=== PATIENT | female | born 1965 ===

== ENCOUNTER → 2021-08-13 | Outpatient (CLI) | payer MEDICAID ==
[~2021-08-13] MED LIST: BUPIVACAINE HCL 0.25% P/F 10 ML VIAL ONE; IOHEXOL 300 MG/ML 100ML BOTTLE IJ ONE; LIDOCAINE 2%HCL (LOCAL ANESTH.) INJ 20ML MDV ONE; methylPREDNISolone ACETATE 80 MG/ML VL ONE
== END | disposition home or self-care (01) ==
LOC: XY 13:02
PROVIDERS: ATTEND Orthopaedic Surgery Adult Reconstructive Orthopaedic Surgery
DX: M25.531 Pain in right wrist (principal)
CPT/HCPCS: 20605; 73100; 76000; J1040; J3490; Q9967